=== PATIENT | female | born 1995 | race Hispanic/Latino ===

== ENCOUNTER 2019-05-29 05:45 | Emergency (ER) | payer OTHER ==
[2019-05-29 06:27] LABS: HCG,QUAL RESULT NEGATIVE (NEGATIVE)
[2019-05-29 06:28] LABS: APPEARANCE,URINE Clear (CLEAR); BILIRUBIN,URINE Negative (NEGATIVE); COLOR,URINE Yellow (YELLOW); GLUCOSE, URINE (UA) Negative (NEGATIVE); KETONES,URINE Negative (NEGATIVE); LEUKOCYTE ESTERASE ,URINE Trace (NEGATIVE); NITRATE,URINE Negative (NEGATIVE); OCCULT BLOOD,URINE Trace (NEGATIVE); PROTEIN,URINE Negative (NEGATIVE); UROBILINOGEN,URINE 0.2 mg/dL (0.2-1.0)
[2019-05-29] MEDS ORDERED: CEPHALEXIN 500 MG CAPSULE ONE (07:06)
[2019-05-29] MEDS ORDERED: PHENAZOPYRIDINE HCL 200 MG TABLET ONE (07:06)
[2019-05-29 07:07] LABS: BACTERIA,URINE Rare /HPF (None Seen); RBC,URINE 0-1 /HPF (0-1); WBC,URINE 0-1 /HPF (0-1)
== END 2019-05-29 08:02 | disposition home or self-care (01) ==
LOC: EDH 05:45
DX: N39.0 Urinary tract infection, site not specified (principal); Z98.890 Other specified postprocedural states
CPT/HCPCS: 81001; 81025

== ENCOUNTER 2019-08-06 13:36 | Emergency (ER) | payer SELFPAY ==
[2019-08-06] MEDS ORDERED: KETOROLAC TROMETHAMINE 60 MG/2 ML VIAL ONE (14:54)
[2019-08-06] MEDS ORDERED: CYCLOBENZAPRINE HCL 10 MG TABLET ONE (14:54)
[2019-08-06] MEDS ORDERED: DIAZEPAM 5 MG TABLET ONE (14:55)
== END 2019-08-06 15:38 | disposition home or self-care (01) ==
LOC: EDH 13:36
DX: M54.5 Low back pain (principal); Z98.890 Other specified postprocedural states; W10.8XXA Fall (on) (from) other stairs and steps, initial encounter; Y93.01 Activity, walking, marching and hiking; Y92.89 Other specified places as the place of occurrence of the external cause; Y99.8 Other external cause status
CPT/HCPCS: 72170; 96372; 99283; J1885